=== PATIENT | female | born 1990 | race Caucasian/White ===

== ENCOUNTER 2016-10-04 19:22 | Emergency (ER) | payer BC ==
--- NOTE | 2016-10-04 23:48 | ER Document Report ---
ED GI/ - General Mode of Arrival: Ambulatory Information source: Patient TRAVEL OUTSIDE OF THE [place] IN LAST 30 DAYS: No - HPI Patient complains to provider of: Flank pain - Right, Other - Nausea <DANIELLE DE GUZMAN - Last Filed: 10/05/16 03:29> <JUAN ANTONIOYONI [place] - Last Filed: 10/05/16 05:15> - General Chief Complaint: Possible Kidney Stone Stated Complaint: ABDOMINAL PAIN Time Seen by Provider: 10/05/16 00:34 Notes: Patient is a 26-year-old female presented to the emergency department for possible kidney stones. Patient states that she has right flank pain that was onset last night and is worsened today. Patient's pain was gradual and does not radiate into her abdomen. Patient states that her pain feels similar to when she had a kidney stone in the past. Patient also complains of some nausea. Patient denies any vomiting, fever, or urinary symptoms. Patient states she is allergic to Keflex causes a rash and she gets sick to her stomach. Patient states she is afraid of needles and does not prefer to have an IV. (DANIELLE DE GUZMAN) - Related Data Allergies/Adverse Reactions: cephalexin [From Keflex] Allergy (Verified 10/04/16 20:05) Past Medical History - General Information source: Patient - Social History Smoking Status: Never Smoker Cigarette use (# per day): No Chew tobacco use (# tins/day): No Smoking Education Provided: No Frequency of alcohol use: None Drug Abuse: None Family History: None Patient has suicidal ideation: No Patient has homicidal ideation: No Renal/ Medical History: Reports: Hx Kidney Stones Surgical Hx: Negative - Immunizations Hx Diphtheria, Pertussis, Tetanus Vaccination: Yes <DANIELLE DE GUZMAN - Last Filed: 10/05/16 03:29> Review of Systems - Review of Systems Constitutional: No symptoms reported EENT: No symptoms reported Cardiovascular: No symptoms reported Respiratory: No symptoms reported Gastrointestinal: See HPI, Nausea. denies: Abdominal pain, Diarrhea, Vomiting Genitourinary: See HPI, Flank pain Female Genitourinary: No symptoms reported Musculoskeletal: No symptoms reported Skin: No symptoms reported Hematologic/Lymphatic: No symptoms reported Neurological/Psychological: No symptoms reported -: Yes All other systems reviewed and negative <DANIELLE DE GUZMAN - Last Filed: 10/05/16 03:29> Physical Exam - Vital signs Interpretation: Hypertensive <DANIELLE DE GUZMAN - Last Filed: 10/05/16 03:29> <YONI ROMANO - Last Filed: 10/05/16 05:15> - Vital signs Vitals: Temp Pulse Resp BP Pulse Ox 98.9 F 121 H 20 140/88 H 98 10/04/16 20:02 10/04/16 20:02 10/04/16 20:02 10/04/16 20:02 10/04/16 20:02 - Notes Notes: GENERAL: Alert, interacts well. Mild distress. HEAD: Normocephalic, atraumatic. EYES: Appear normal. Pupils equal, round, and reactive to light. ENT: Moist mucus membranes, tongue midline. NECK: Full range of motion. Supple. Trachea midline. LUNGS: Clear to auscultation bilaterally, no wheezes, rales, or rhonchi. No respiratory distress. HEART: Tachycardia. Regular rhythm. No murmurs, gallops, or rubs. ABDOMEN: Soft, non-tender. Non-distended. Normal bowel sounds. BACK: Right CVA tenderness to palpation. EXTREMITIES: Moves all 4 extremities spontaneously. Normal strength. No edema. NEUROLOGICAL: Alert and oriented x3. Normal speech. No focal neurological deficits. GSC 15. PSYCH: Normal affect, normal mood. SKIN: Warm, dry, normal turgor. No rashes or lesions noted. (DANIELLE DE GUZMAN) Course - Laboratory Result Diagrams: 10/04/16 23:50 10/04/16 23:50 <DANIELLE DE GUZMAN - Last Filed: 10/05/16 03:29> - Laboratory Result Diagrams: 10/04/16 23:50 10/04/16 23:50 <YONI ROMANO - Last Filed: 10/05/16 05:15> - Re-evaluation Re-evalutation: 10/05/16 Patient with symptoms and urine more consistent with urinary tract infection going to pyelonephritis and kidney stone. Patient does not want anything IV or with a needle. Given Zofran and then given food. Patient was medicated with Percocet and ciprofloxacin for what is likely pyelonephritis. The patient cannot tolerate Keflex which would be my preferred antibiotic. Patient will have urine culture sent and is to follow-up with her doctor. Understands and agrees with plan. Stable for discharge. Return if any worsening or concerning symptoms. (YONI ROMANO) - Vital Signs Vital signs: Temp Pulse Resp BP Pulse Ox 98.9 F 102 H 16 128/62 H 98 10/05/16 03:08 10/05/16 03:08 10/05/16 03:08 10/05/16 03:08 10/05/16 03:08 - Laboratory Laboratory results interpreted by me: 10/04/16 10/04/16 10/04/16 23:50 23:50 23:50 WBC 14.3 H Absolute Neutrophils 10.5 H Calcium 10.3 H Total Bilirubin 1.4 H Urine Protein 30 H Ur Leukocyte Esterase MODERATE H Discharge <DANIELLE DE GUZMAN - Last Filed: 10/05/16 03:29> <YONI ROMANO - Last Filed: 10/05/16 05:15> - Discharge Clinical Impression: Pyelonephritis Condition: Stable Disposition: HOME, SELF-CARE Instructions: Ciprofloxacin ([facility]), Pyelonephritis ([facility]) Prescriptions: Ondansetron [Zofran Odt 4 mg Tablet] 1 tab PO Q6HP PRN #15 tab.rapdis PRN Reason: For Nausea/Vomiting Ciprofloxacin HCl [Cipro 500 mg Tablet] 500 mg PO BID #28 tablet Oxycodone HCl/Acetaminophen [Percocet 5-325 mg Tablet] 1 tab PO Q4H PRN #15 tablet PRN Reason: Forms: Return to Work Scribe Attestation: 10/05/16 05:15 I personally performed the services described in the documentation, reviewed and edited the documentation which was dictated to the scribe in my presence, and it accurately records my words and actions. (YONI ROMANO) Scribe Documentation - Scribe Written by Preston:: Preston Mathews, 10/05/2016 3:36 acting as scribe for :: Juan Antonio <DANIELLE DE GUZMAN - Last Filed: 10/05/16 03:29>
[2016-10-05 00:14] LABS: APPEARANCE,URINE SLIGHTLY-CLOUDY; BILIRUBIN,URINE NEGATIVE (NEGATIVE); GLUCOSE, URINE NEGATIVE (NEGATIVE); KETONES,URINE NEGATIVE (NEGATIVE); LEUKOCYTE ESTERASE,URINE MODERATE (NEGATIVE); NITRITE,URINE NEGATIVE (NEGATIVE); PROTEIN,URINE 30 mg/dL (NEGATIVE); URINE SPECIFIC GRAVITY 1.014; UROBILINOGEN,URINE NEGATIVE mg/dL (<2.0)
[2016-10-05 00:19] LABS: ABSOLUTE BASOPHILS # (AUTO) 0.1 10^3/uL (0.0-0.2); ABSOLUTE LYMPHOCYTES (AUTO) 2.8 10^3/uL (0.5-4.7); ABSOLUTE MONOCYTES (AUTO) 0.8 10^3/uL (0.1-1.4); ABSOLUTE NEUT (AUTO) 10.5 10^3/uL (1.7-8.2); BASOPHILS % (AUTO) 0.6 % (0-2); EOSINOPHILS % (AUTO) 0.1 % (0-6); HEMATOCRIT 42.2 % (36.0-47.0); HGB HCT DIFFERENCE -0.2; LYMPHOCYTES % (AUTO) 19.4 % (13-45); MEAN CORPUSCULAR HEMOGLOBIN 28.3 pg (27.0-33.4); MEAN CORPUSCULAR HGB CONC 33.3 g/dL (32.0-36.0); MEAN CORPUSCULAR VOLUME 85 fl (80-97); RED BLOOD COUNT 4.95 10^6/uL (3.72-5.28); RED CELL DISTRIBUTION WIDTH 13.4 % (11.5-14.0); SEGMENTED NEUTROPHILS % (AUTO) 73.9 % (42-78); WHITE BLOOD COUNT 14.3 10^3/uL (4.0-10.5)
[2016-10-05 00:28] LABS: ALANINE AMINOTRANSFERASE 22 U/L (9-52); ALBUMIN 4.7 g/dL (3.5-5.0); ALKALINE PHOSPHATASE 64 U/L (38-126); ANION GAP 11 (5-19); ASPARTATE AMINO TRANSFERASE 20 U/L (14-36); BILIRUBIN,DIRECT 0.2 mg/dL (0.0-0.4); BILIRUBIN,TOTAL 1.4 mg/dL (0.2-1.3); BLOOD UREA NITROGEN 10 mg/dL (7-20); CALCIUM 10.3 mg/dL (8.4-10.2); CARBON DIOXIDE 30 mmol/L (22-30); CHLORIDE 101 mmol/L (98-107); CREATININE RESULT 0.67 mg/dL (0.52-1.25); GLUCOSE 98 mg/dL (75-110); POTASSIUM 4.3 mmol/L (3.6-5.0); SODIUM 141.7 mmol/L (137-145); TOTAL PROTEIN 8.2 g/dL (6.3-8.2)
[2016-10-05] MEDS ORDERED: ONDANSETRON 4 MG TAB.RAPDIS PO ONE (00:38)
[2016-10-05] MEDS ORDERED: OXYCODONE-ACETAMINOPHEN 5-325 MG TABLET PO ONE (01:09)
[2016-10-05] MEDS ORDERED: KETOROLAC TROMETHAMINE 10 MG TABLET PO ONE (01:09)
[2016-10-05] MEDS ORDERED: CIPROFLOXACIN HCL 500 MG TABLET PO ONE (01:10)
[2016-10-05] MEDS ORDERED: HYDROCODONE/ACETAMINOPHEN 5-325 MG 6 TAB/DSPK PO PRN (02:37)
[2016-10-05] MEDS ORDERED: ONDANSETRON ODT 4 MG TAB (6 TAB/DSPK) PO PRN (02:37)
[2016-10-05 03:11] VITALS: BP 128/62
== END 2016-10-05 03:08 | disposition home or self-care (01) ==
LOC: ER 19:22
DX: N12 Tubulo-interstitial nephritis, not specified as acute or chronic (principal); R11.0 Nausea; R00.0 Tachycardia, unspecified; Z88.1 Allergy status to other antibiotic agents; Z87.442 Personal history of urinary calculi
CPT/HCPCS: 99284; 36415; 87086; 85025; 81025; 87088; 80053; 81001; 87186; S0119

== ENCOUNTER 2020-02-02 11:55 | Emergency (ER) | payer BC ==
[2020-02-02] MEDS ORDERED: NORMAL SALINE 1000 ML 1,000 ML IV ONE ×2 (12:28→14:42)
[2020-02-02] MEDS ORDERED: METOCLOPRAMIDE HCL ORAL SOLN 10 MG/10 ML UDCUP PO ONE (12:28)
--- NOTE | 2020-02-02 12:30 | ER Document Report ---
ED Medical Screen (RME) - General Chief Complaint: Dizziness Stated Complaint: DIZZINESS Time Seen by Provider: 02/02/20 12:25 TRAVEL OUTSIDE OF THE [place] IN LAST 30 DAYS: No - HPI Notes: 02/02/20 12:29 29-year-old female G1, P0 who is 5 weeks LMP 12/26/2019 presents to the emergency room today for feeling like she is going to "pass out" and dizziness that started today. She did call her [employer] and advised her to come to the emergency room. Patient reports nausea and vomiting, denies any abdominal pain. Denies any vaginal bleeding vaginal discharge. Patient is able to keep down some water, she did eat dinner last night without any issues. Has not tried any [id number] medications. Patient still feels like she is going to pass out currently. Denies any chest pain, shortness of breath, blurred vision, double vision, loss of vision I have greeted and performed a rapid initial assessment of this patient. A comprehensive ED assessment and evaluation of the patient, analysis of test results and completion of the medical decision making process will be conducted by additional ED providers. PHYSICAL EXAMINATION: GENERAL: Well-appearing, well-nourished and in no acute distress. HEAD: Atraumatic, normocephalic. EYES: Pupils equal round extraocular movements intact, conjunctiva are normal. NECK: Normal range of motion CV: s1, s2 regular LUNGS: No respiratory distress - Related Data Allergies/Adverse Reactions: cephalexin [From Keflex] Allergy (Verified 02/02/20 12:19) Past Medical History - Social History Chew tobacco use (# tins/day): No Frequency of alcohol use: None Drug Abuse: None Renal/ Medical History: Reports: Hx Kidney Stones. Denies: Hx Peritoneal Dialysis - Immunizations Hx Diphtheria, Pertussis, Tetanus Vaccination: Yes Physical Exam - Vital signs Vitals: Temp Pulse Resp BP Pulse Ox 98.3 F 91 20 133/72 H 98 02/02/20 12:02/02/20 12:02/02/20 12:02/02/20 12:02/02/20 12:02 Course - Vital Signs Vital signs: Temp Pulse Resp BP Pulse Ox 98.3 F 91 20 133/72 H 98 02/02/20 12:20 02/02/20 12:02 02/02/20 12:02 02/02/20 12:02 02/02/20 12:02
[2020-02-02 13:23] LABS: ABSOLUTE BASOPHILS # (AUTO) 0.1 10^3/uL (0.0-0.2); ABSOLUTE LYMPHOCYTES (AUTO) 1.6 10^3/uL (0.5-4.7); ABSOLUTE MONOCYTES (AUTO) 0.7 10^3/uL (0.1-1.4); ABSOLUTE NEUT (AUTO) 9.2 10^3/uL (1.7-8.2); BASOPHILS % (AUTO) 0.7 % (0-2); EOSINOPHILS % (AUTO) 0.3 % (0-6); HEMATOCRIT 43.5 % (36.0-47.0); HEMOGLOBIN 14.6 g/dL (12.0-15.5); LYMPHOCYTES % (AUTO) 13.6 % (13-45); MEAN CORPUSCULAR HEMOGLOBIN 28.6 pg (27.0-33.4); MEAN CORPUSCULAR HGB CONC 33.6 g/dL (32.0-36.0); MEAN CORPUSCULAR VOLUME 85 fl (80-97); MONOCYTES % (AUTO) 6.2 % (3-13); PLATELET COUNT 240 10^3/uL (150-450); RED BLOOD COUNT 5.11 10^6/uL (3.72-5.28); RED CELL DISTRIBUTION WIDTH 13.3 % (11.5-14.0); SEGMENTED NEUTROPHILS % (AUTO) 79.2 % (42-78); TOTAL CELLS COUNTED % (AUTO) 100 %; WHITE BLOOD COUNT 11.7 10^3/uL (4.0-10.5)
[2020-02-02 13:24] LABS: APPEARANCE,URINE SLIGHTLY-CLOUDY; BILIRUBIN,URINE NEGATIVE (NEGATIVE); COLOR,URINE YELLOW; GLUCOSE, URINE NEGATIVE (NEGATIVE); KETONES,URINE NEGATIVE (NEGATIVE); LEUKOCYTE ESTERASE,URINE NEGATIVE (NEGATIVE); NITRITE,URINE NEGATIVE (NEGATIVE); PROTEIN,URINE NEGATIVE (NEGATIVE); URINE SPECIFIC GRAVITY 1.021; UROBILINOGEN,URINE NEGATIVE mg/dL (<2.0)
[2020-02-02 13:43] LABS: ALBUMIN 4.8 g/dL (3.5-5.0); ALKALINE PHOSPHATASE 51 U/L (38-126); ANION GAP 8 (5-19); ASPARTATE AMINO TRANSFERASE 33 U/L (14-36); BILIRUBIN,DIRECT 0.1 mg/dL (0.0-0.4); BILIRUBIN,TOTAL 1.2 mg/dL (0.2-1.3); BLOOD UREA NITROGEN 9 mg/dL (7-20); CALCIUM 9.8 mg/dL (8.4-10.2); CARBON DIOXIDE 27 mmol/L (22-30); CHLORIDE 102 mmol/L (98-107); GLUCOSE 92 mg/dL (75-110); POTASSIUM 3.9 mmol/L (3.6-5.0); TOTAL PROTEIN 8.6 g/dL (6.3-8.2)
--- NOTE | 2020-02-02 14:20 | EKG REPORT ---
SEVERITY:- NORMAL ECG - SINUS RHYTHM : Confirmed by: Samira Gonsales MD 02-Feb-2020 14:19:27
--- NOTE | 2020-02-02 14:51 | ER Document Report ---
ED General - General Chief Complaint: Near Syncope Stated Complaint: DIZZINESS Time Seen by Provider: 02/02/20 12:25 Notes: HPI: 29-year-old female G1, P0 who presents today around 5 weeks from last menstrual period with some persistent nausea and vomiting and feeling lightheaded like she was going to pass out today. She denies any and all chest pain, palpitations, shortness of breath, leg swelling, abdominal pain or cramping, or dysuria. ROS: See HPI All other review of systems reviewed and otherwise negative Reviewed vital signs and nursing note as charted by RN. PHYSICAL EXAM: CONSTITUTIONAL: Alert and oriented and responds appropriately to questions. Well-appearing; well-nourished HEAD: Normocephalic; atraumatic EYES: Sclera not pale ENT: Normal nose; no rhinorrhea; moist mucous membranes; pharynx without lesions noted NECK: Supple without meningismus; non-tender; no cervical lymphadenopathy, no masses CARD: Regular rate and rhythm; no murmurs; symmetric distal pulses RESP: Normal chest excursion without splinting or tachypnea; breath sounds clear and equal bilaterally ABD/GI: Normal bowel sounds; non-distended; soft, non-tender BACK: The back appears normal and is non-tender to palpation EXT: Normal ROM in all joints; non-tender to palpation; no edema SKIN: No acute lesions noted NEURO: CN 2-12 intact; 5/5 bilateral upper and lower extremity strength with sensation intact to light touch PSYCH: The patient's mood and manner are appropriate. Grooming and personal hygiene are appropriate. TRAVEL OUTSIDE OF THE [place] IN LAST 30 DAYS: No - Related Data Allergies/Adverse Reactions: cephalexin [From Keflex] Allergy (Verified 02/02/20 12:19) Past Medical History - Social History Smoking Status: Former Smoker Chew tobacco use (# tins/day): No Frequency of alcohol use: None Drug Abuse: None Family History: None Patient has homicidal ideation: No Renal/ Medical History: Reports: Hx Kidney Stones. Denies: Hx Peritoneal Dialysis - Immunizations Hx Diphtheria, Pertussis, Tetanus Vaccination: Yes Physical Exam - Vital signs Vitals: Temp Pulse Resp BP Pulse Ox 98.3 F 91 20 133/72 H 98 02/02/20 12:02 02/02/20 12:02 02/02/20 12:02/02/20 12:02 02/02/20 12:02 Course - Re-evaluation Re-evalutation: Given the above history and physical, no vaginal bleeding, no chest pain or palpitations, stable vital signs, afebrile, with no pelvic pain or cramping, I do not believe an ectopic is likely at this moment. We will check the urine analysis for the possibility of urinary tract infection and provide fluids and obtain an EKG. I would like to check the patient's electrolytes as well as the possibility of dehydration. 02/02/20 14:52 EKG shows heart of 87, normal sinus rhythm, normal axis, no obvious ST elevation or depression 02/02/20 15:11 Labs as recorded. Urine analysis as recorded. Orthostatics actually shown increased blood pressure when lying to standing. No increased heart rate. Patient is no longer lightheaded or dizzy. EKG unremarkable. Given the above history and physical, patient will be discharged home with strict return precautions and follow-up with the primary care provider for further reassessment and treatment. I will provide a course of Phenergan for discharge nausea. Second liter of fluid has been provided. - Vital Signs Vital signs: Temp Pulse Resp BP Pulse Ox 98.3 F 81 20 120/69 98 02/02/20 12:20 02/02/20 13:13 02/02/20 12:02 02/02/20 13:13 02/02/20 12:02 - Laboratory Results Result Diagrams: 02/02/20 12:57 02/02/20 12:57 Laboratory Results Interpreted: 02/02/20 02/02/20 12:57 12:57 WBC 11.7 H Absolute Neuts (auto) 9.2 H Seg Neutrophils % 79.2 H Total Protein 8.6 H Beta HCG, Quant 71615.00 H Critical Laboratory Results Reviewed: No Critical Results - Radiology Results Critical Radiology Results Reviewed: No Critical Results Discharge - Discharge Clinical Impression: Vomiting affecting Condition: Good Disposition: HOME, SELF-CARE Additional Instructions: Come back immediately for any vaginal bleeding, abdominal pain, lightheadedness or dizziness, fever or repeat vomiting, or any other acute problems. Prescriptions: Promethazine HCl [Phenergan 25 mg Tablet] 12.5 mg PO Q6H PRN #15 tablet PRN Reason:
[2020-02-02 16:05] VITALS: BP 132/78
== END 2020-02-02 16:07 | disposition home or self-care (01) ==
LOC: ER 11:55
DX: O21.9 Vomiting of pregnancy, unspecified (principal); R55 Syncope and collapse; Z3A.01 Less than 8 weeks gestation of pregnancy
CPT/HCPCS: 93005; 99284; 96360; 96361; 36415; 82962; 84702; 85025; 80053; 81001; 93010; J7030